=== PATIENT | male | born 1955 | race Caucasian/White ===

== ENCOUNTER → 2017-01-31 | Outpatient (CLI) | payer MEDICARE ==
[2017-01-31 13:16] VITALS: BMI 46.3
== END | disposition home or self-care (01) ==
LOC: BARWHC3 08:36
PROVIDERS: ATTEND Surgery Plastic and Reconstructive Surgery
DX: E66.01 Morbid (severe) obesity due to excess calories (principal)
CPT/HCPCS: 97804

== ENCOUNTER → 2017-02-02 | Outpatient (CLI) | payer MEDICARE, OTHER, SELFPAY ==
[2017-02-09 05:26] LABS: Anabasine Urine <2.0 ng/mL (<2.0)
== END | disposition home or self-care (01) ==
LOC: LABWHC1 16:18
PROVIDERS: ATTEND Surgery Plastic and Reconstructive Surgery
DX: Z72.0 Tobacco use (principal)
CPT/HCPCS: 80323

== ENCOUNTER → 2017-02-02 | Outpatient (CLI) | payer MEDICARE ==
[2017-02-02 15:06] VITALS: BP 157/70; PULSE 74; RESP 15; TEMP 97.6; BMI 46.8
--- NOTE | 2017-02-25 20:11 | P.PN ---
Progress Note - Text DATE OF SERVICE: 02/02/2017 CHIEF COMPLAINT: Bariatric assessment. HISTORY OF PRESENT ILLNESS: Dominick Briceno is a 61-year-old gentleman who presented to us in August 2016. Over the past 4 going on 5 months, he has been evaluating his bariatric options. Initially, he was looking into a Jerry-en-Y gastric bypass. Now he is possibly looking into a sleeve gastrectomy. He has completed a psych assessment. Separately, he comes in with concerns of moderate water retention of the lower extremities. As he is evaluating for a sleeve gastrectomy, he was asked to discontinue his omeprazole for least for one week to evaluate severity of reflux disease. He denies any troubles with reflux disease while coming off his medication. He has purchase his whey protein to start his protein shakes. He also reports possibility of moving from his home to [place]. Currently he lives in [place]. Now he comes in with further concerns. Separately, he reports discontinuing tobacco use over the past 4 weeks as well. PAST MEDICAL HISTORY: 1. Hypertension. 2. Hyperlipidemia. 3. Sleep apnea. 4. Morbid obesity. 5. Renal insufficency. 6. Bipolar disorder. 7. Gastroesophageal reflux disease. 8. Osteoarthritis. PAST SURGICAL HISTORY: 1. Cholecystectomy. 2. Traumatic amputation of the right thumb. 3. Upper endoscopy. MEDICATIONS: 1. Metformin. 2. Stool softener. 3. Zocor. 4. Senna. 5. MiraLax. 6. Omeprazole. 7. Levothyroxine. 8. Imdur. 9. Motrin. 10. Vitamin D. 11. Depakote. 12. Flexeril. 13. Coreg. 14. Aspirin. 15. Tylenol No. 3. ALLERGIES: 1. CEPHALOSPORIN. 2. GLUCOCORTICOIDS. 3. PENICILLIN. 4. SULFA. 5. BACTRIM. 6. YELLOW DYE. SOCIAL HISTORY: He is a daily tobacco user. FAMILY HISTORY: Pertinent for diabetes including hypertension and morbid obesity also noted in the sister. REVIEW OF SYSTEMS: CONSTITUTIONAL: Height of 5 foot 11, ideal body weight is 170 pounds. Highest weight of 343 pounds. Today he comes weighing 335 pounds. Attained weight loss of 8 pounds. Body mass index reduced from 47.9 down to 46.9. He is still 157 pounds overweight. He has lost 4 pounds since his last evaluation 4 months ago. PSYCH: History of bipolar disorder where he alternates his medications with his primary care provider. HEENT: Denies any active trouble with vision or swallowing. He does report troubles with hearing, however. ENDOCRINE: History of diabetes type 2. No reports of thyroid disorder noted. RESPIRATORY: Does have intermittent dyspnea on exertion including obstructive sleep apnea. CARDIOVASCULAR: History of hypertension for which he is on medications. He has also developed renal insufficiency as a result of his hypertension. GASTROINTESTINAL: Has gastroesophageal reflux disease. No reports of change in bowel habits. He has had prior colonoscopies. MUSCULOSKELETAL: Noted traumatic amputation of the right thumb. Has osteoarthritis of the lower back, including bilateral hips. HEMATOLOGIC: No reports of easy bruising or bleeding. PHYSICAL EXAM: VITAL SIGNS: 97.6, 74, 15, 157/70, 5 foot 11, 335 pounds. Body mass index of 46.9. GENERAL: Well-developed male in no acute distress. HEENT: No sclerae icterus. Extraocular movements grossly intact. Moist buccal mucosa. He is edentulous. He is hard of hearing, however. NECK: Supple without supple without lymphadenopathy. No thyromegaly. CHEST: Nonlabored respirations with equal bilateral excursions. CARDIOVASCULAR: Regular rate and regular rhythm. ABDOMEN: Abdomen is soft, nontender, nondistended. MUSCULOSKELETAL: No clubbing, cyanosis, or edema. NEURO: Cranial nerves II through XII grossly intact. No focal or lateralizing signs. PSYCH: Appropriate affect. Alert and oriented to person, place, and time. MISCELLANEOUS: Psych assessment was reviewed alongside with the patient including concerns of his bipolar medications, which is occasionally taken. Separately appropriate family supports and financial needs were described and discussed. The education of bariatric lifestyle was questioned in detail, including when to take his supplements and medications. He had passed all questions. STUDIES: Upper endoscopy also demonstrated findings consistent with a food bezoar and gastroparesis. Low grade 4 lower esophageal valve was also identified and confirmed. ASSESSMENT: 1. Morbid obesity due to excess calories. 2. Body mass index reduced from 47.9 down to 46.9. 3. Active nicotine use. 4. Obstructive sleep apnea. 5. Hypertensive heart disease with cardiomyopathy. 6. Hypertensive renal insufficiency. 7. Bipolar disorder. 8. Gastroesophageal reflux disease. 9. Prior history of myocardial infarction. 10. Prior history of gastric ulcer. 11. Family history of morbid obesity. 12. Dietary surveillance and counseling. 13. Tobacco cessation. 14. Diaphragmatic hiatal hernia. 15. Personal history of colon polyps. PLAN: 1. He has completed his psych assessment with some reservations regarding appropriate familial or social support as well as understanding the bariatric lifestyle. He was thoroughly counseled and including questions which he demonstrated 100% answers to expectations for a bariatric lifestyle and diet. 2. He also reports no symptoms without taking his omeprazole. As a result, he has elected for a sleeve gastrectomy over a gastric bypass. 3. He reports abstaining from tobacco; however, will complete a urine cotinine test. 4. An 8-page second-generation bariatric consent form was reviewed in detail, including the risks of increased reflux disease postop as well as leaks and his nutritional deficiencies. This is: however, not limited to additional full length discussion of all potential complications and risks. 5. As he travels from [place] away, I have asked him to have close communication with us as to arrange in the case of any emergencies. He states that he will be moving to [place]. ADDENDUM: LABS: Urine cotinine test was completely negative. Will proceed with scheduling surgery as advised.
== END | disposition home or self-care (01) ==
LOC: BARWHC3 14:19
PROVIDERS: ATTEND Surgery Plastic and Reconstructive Surgery
DX: Z01.818 Encounter for other preprocedural examination (principal); E66.01 Morbid (severe) obesity due to excess calories; I11.9 Hypertensive heart disease without heart failure; N28.9 Disorder of kidney and ureter, unspecified; I25.2 Old myocardial infarction; F31.9 Bipolar disorder, unspecified; K44.9 Diaphragmatic hernia without obstruction or gangrene; Z72.0 Tobacco use; Z88.8 Allergy status to other drugs, medicaments and biological substances; Z71.3 Dietary counseling and surveillance; Z88.2 Allergy status to sulfonamides; Z88.1 Allergy status to other antibiotic agents; Z88.0 Allergy status to penicillin; Z87.11 Personal history of peptic ulcer disease; Z68.42 Body mass index [BMI] 45.0-49.9, adult; Z79.82 Long term (current) use of aspirin; Z91.048 Other nonmedicinal substance allergy status; Z86.010 Personal history of colon polyps; Z79.899 Other long term (current) drug therapy; Z79.84 Long term (current) use of oral hypoglycemic drugs; Z79.02 Long term (current) use of antithrombotics/antiplatelets
CPT/HCPCS: 80323; 99211

== ENCOUNTER → 2017-03-02 | Outpatient (CLI) | payer MEDICARE ==
[2017-03-02 16:05] VITALS: BP 145/75; PULSE 66; RESP 16; TEMP 98.1; BMI 46.0
--- NOTE | 2017-04-27 04:21 | P.PN ---
Progress Note - Text DATE OF SERVICE: 03/02/2017 CHIEF COMPLAINT: Morbid obesity. HISTORY OF PRESENT ILLNESS: Dominick Briceno is a 61-year-old gentleman who has been undergoing bariatric evaluation for a little over three years. At his height of 5 feet 11 inches his ideal body weight is 178 pounds. His highest weight was 343 pounds. Today he comes in weighing 330 pounds. He has maintained a 13 pounds weight loss. He is still 152 pounds overweight. Body mass index is reduced from 47.9 down to 46. He self medicates with Depakote. He reports taking large doses of Depakote since he was 18 years old. He has changed his surgical options from a Jerry-en-Y gastric bypass now to a sleeve. He has maintained a strict protein diet and has been able to lose 16 pounds in less than 5 days. He now comes in seeking surgical intervention. PAST MEDICAL HISTORY: 1. Hypertension. 2. Hyperlipidemia. 3. Sleep apnea. 4. Morbid obesity. 5. Renal insufficency. 6. Bipolar disorder. 7. Gastroesophageal reflux disease. 8. Osteoarthritis. PAST SURGICAL HISTORY: 1. Cholecystectomy. 2. Traumatic amputation of the right thumb. 3. Upper endoscopy. MEDICATIONS: 1. Metformin. 2. Stool softener. 3. Zocor. 4. Senna. 5. MiraLax. 6. Omeprazole. 7. Levothyroxine. 8. Imdur. 9. Motrin. 10. Vitamin D. 11. Depakote. 12. Flexeril. 13. Coreg. 14. Aspirin. 15. Tylenol No. 3. ALLERGIES: 1. CEPHALOSPORIN. 2. GLUCOCORTICOIDS. 3. PENICILLIN. 4. SULFA. 5. BACTRIM. 6. YELLOW DYE. SOCIAL HISTORY: He is a daily tobacco user. FAMILY HISTORY: Pertinent for diabetes including hypertension and morbid obesity also noted in the sister. REVIEW OF SYSTEMS: CONSTITUTIONAL: At his height of 5 feet 11 inches his ideal body weight is 178 pounds. His highest weight was 343 pounds. Today he comes in weighing 330 pounds. He has maintained a 13 pounds weight loss. He is still 152 pounds overweight. Body mass index is reduced from 47.9 down to 46. NEURO: History of seizure disorders. Also, history of bipolar disorder. PSYCH: History of bipolar disorder where he alternates his medications with his primary care provider. HEENT: Denies any active trouble with vision or swallowing. He does report troubles with hearing, however. ENDOCRINE: History of diabetes type 2. No reports of thyroid disorder noted. RESPIRATORY: Does have intermittent dyspnea on exertion including obstructive sleep apnea. CARDIOVASCULAR: History of hypertension for which he is on medications. He has also developed renal insufficiency as a result of his hypertension. GASTROINTESTINAL: Has gastroesophageal reflux disease. No reports of change in bowel habits. He has had prior colonoscopies. MUSCULOSKELETAL: Noted traumatic amputation of the right thumb. Has osteoarthritis of the lower back, including bilateral hips. HEMATOLOGIC: No reports of easy bruising or bleeding. PHYSICAL EXAM: VITAL SIGNS: 98.1, 66, 16, 145/75, 5 feet 11 inches, 330 pounds. Body mass index 46.1. ABDOMEN: Soft, nontender, nondistended. GENERAL: Well-developed male in no acute distress. HEENT: No sclerae icterus. Extraocular movements grossly intact. Moist buccal mucosa. He is edentulous. He is hard of hearing, however. NECK: Supple without supple without lymphadenopathy. No thyromegaly. CHEST: Nonlabored respirations with equal bilateral excursions. CARDIOVASCULAR: Regular rate and regular rhythm. MUSCULOSKELETAL: No clubbing, cyanosis, or edema. NEURO: Cranial nerves II through XII grossly intact. No focal or lateralizing signs. PSYCH: Appropriate affect. Alert and oriented to person, place, and time. ASSESSMENT: 1. Morbid obesity due to excess calories. 2. Body mass index reduced from 47.9 down to 46. 3. Tobacco cessation. 4. Obstructive sleep apnea. 5. Hypertensive heart disease with cardiomyopathy. 6. Hypertensive renal insufficiency. 7. Bipolar disorder. 8. Gastroesophageal reflux disease. 9. Prior history of myocardial infarction. 10. Prior history of gastric ulcer. 11. Family history of morbid obesity. 12. Dietary surveillance and counseling. 13. Diaphragmatic hiatal hernia. PLAN: 1. An 8 page second generation bariatric consent form was reviewed in detail. All his questions including dietary restrictions were reviewed. 2. As his medication Depakene is primarily tablet form, I recommend liquid form. He will have close observation including monitoring of his seizure, antiseizure medications and antibipolar medications. 3. He will continue with 2 week protein diet in the interim. 4. Inpatient hospitalization anticipated over 2 nights. 5. Deep venous thrombosis prophylaxis. 6. Antibiotic prophylaxis. 7. Recommend management with his CPAP for obstructive sleep apnea. 8. He has selected for a sleeve gastrectomy and risks for severe gastroesophageal reflux disease was also described. 9. Intraoperative review for hiatal hernias and subsequent repair also described as well. ADDENDUM: Hemoglobin was normal at 13.8. MCV was elevated at 103.6. Platelet count was low at 145. Sodium was low at 135. Chloride was elevated and 93. Carbon dioxide was elevated at 33. BUN is elevated at 40, creatinine elevated 1.35. [facility]
== END ==
LOC: BARWHC3 14:51
PROVIDERS: ATTEND Surgery Plastic and Reconstructive Surgery
DX: Z01.818 Encounter for other preprocedural examination (principal); E66.01 Morbid (severe) obesity due to excess calories; E03.9 Hypothyroidism, unspecified; F31.9 Bipolar disorder, unspecified; Z79.899 Other long term (current) drug therapy; Z79.01 Long term (current) use of anticoagulants
CPT/HCPCS: 80053; 85025; 93005; 99211

== ENCOUNTER → 2017-03-02 | Outpatient (CLI) | payer MEDICARE ==
[2017-03-02 17:15] LABS: EKG EKG PERFORMED
[2017-03-02 18:00] LABS: Basophils % (A) 1 %; CH 33.6; CHCM 32.6; Eosinophils # (A) 0.5 k/uL (0-0.7); Eosinophils % (A) 9 %; HCT 41.8 % (39.0-53.0); HDW 2.57; HGB 13.8 gm/dL (13.0-17.5); Luc # (Auto) 0.14; Luc % (Auto) 3; Lymphocytes # (A) 1.2 k/uL (1.0-4.8); Lymphocytes % (A) 23 %; MCH 34.2 pg (25.0-35.0); MCV 103.6 fL (80.0-100.0); Macrocytosis Moderate; Monocytes # (A) 0.7 k/uL (0-1.0); Monocytes % (A) 12 %; Neutrophils # (A) 2.8 k/uL (1.3-7.7); Neutrophils % (A) 52 %; RBC 4.04 m/uL (4.30-5.90); RDW 15.3 % (11.5-15.5); WBC 5.4 k/uL (3.8-10.6); WBC (Perox) 5.64
[2017-03-02 18:19] LABS: ALT 31 U/L (21-72); AST 33 U/L (17-59); Alkaline Phosphatase 55 U/L (38-126); Anion Gap 9 mmol/L; Blood Urea Nitrogen 40 mg/dL (9-20); Calcium 10.2 mg/dL (8.4-10.2); Carbon Dioxide 33 mmol/L (22-30); Chloride 93 mmol/L (98-107); Glucose 87 mg/dL (74-99); Non-African American GFR(MDRD) 53 (>60 ml/min/1.73 sqM); Potassium 4.3 mmol/L (3.5-5.1); Sodium 135 mmol/L (137-145); Total Bilirubin 0.6 mg/dL (0.2-1.3); Total Protein 7.7 g/dL (6.3-8.2)
== END ==
LOC: LABPAT 16:45
PROVIDERS: ATTEND Surgery Plastic and Reconstructive Surgery
DX: Z01.810 Encounter for preprocedural cardiovascular examination (principal); Z01.812 Encounter for preprocedural laboratory examination
CPT/HCPCS: 80053; 85025; 93005

== ENCOUNTER 2017-03-14 07:23 | Inpatient (IN) | payer MEDICARE ==
[~2017-03-14 07:23] MED LIST: CLINDAMYCIN 900 MG in DEXTROSE 5% IN WATER 50 ML IVPB ONE; GENTAMICIN 500 MG in SODIUM CHLORIDE 0.9% 100 ML IVPB ONE; HYDROmorphone 1 MG/ML 1 ML SYRINGE IVP PRN; LACTATED RINGERS 1,000 ML IV SCH; LIDOCAINE 1% 20 ML VIAL (10MG/ML) FOR IV START INTRADERMA PRN; MIDAZOLAM 2 MG/2 ML VIAL IV PRN; ONDANSETRON 4 MG/2 ML VIAL IVP ONE; SCOPOLAMINE 1.5MG/72HR PATCH TRANSDERM ONE
--- NOTE | 2017-03-14 07:44 | P.GSHP ---
History of Present Illness H&P Date: 03/14/17 DATE OF SERVICE: 03/14/2017 CHIEF COMPLAINT: Morbid obesity. HISTORY OF PRESENT ILLNESS: Dominick Briceno is a 61-year-old gentleman who presented to us in August 2016. He is looking into a sleeve gastrectomy. He has completed a psych assessment. As he is evaluating for a sleeve gastrectomy, he was asked to discontinue his omeprazole for least for one week to evaluate severity of reflux disease. He denies any troubles with reflux disease while coming off his medication. He has several comorbidities related to his morbid obesity as well as sleep apnea, hypertension, osteoarthritis. Separately, he reports discontinuing tobacco use over the past 8 weeks as well. PAST MEDICAL HISTORY: 1. Hypertension. 2. Hyperlipidemia. 3. Sleep apnea. 4. Morbid obesity. 5. Renal insufficency. 6. Bipolar disorder. 7. Gastroesophageal reflux disease. 8. Osteoarthritis. PAST SURGICAL HISTORY: 1. Cholecystectomy. 2. Traumatic amputation of the right thumb. 3. Upper endoscopy. MEDICATIONS: 1. Metformin. 2. Stool softener. 3. Zocor. 4. Senna. 5. MiraLax. 6. Omeprazole. 7. Levothyroxine. 8. Imdur. 9. Motrin. 10. Vitamin D. 11. Depakote. 12. Flexeril. 13. Coreg. 14. Aspirin. 15. Tylenol No. 3. ALLERGIES: 1. CEPHALOSPORIN. 2. GLUCOCORTICOIDS. 3. PENICILLIN. 4. SULFA. 5. BACTRIM. 6. YELLOW DYE. SOCIAL HISTORY: He is a daily tobacco user. FAMILY HISTORY: Pertinent for diabetes including hypertension and morbid obesity also noted in the sister. REVIEW OF SYSTEMS: CONSTITUTIONAL: Height of 5 foot 11, ideal body weight is 170 pounds. Highest weight of 343 pounds. Today he comes weighing 318 pounds. Attained weight loss of 25 pounds. Body mass index reduced from 47.9 down to 44.5. PSYCH: History of bipolar disorder where he alternates his medications with his primary care provider. HEENT: Denies any active trouble with vision or swallowing. He does report troubles with hearing, however. ENDOCRINE: History of diabetes type 2. No reports of thyroid disorder noted. RESPIRATORY: Does have intermittent dyspnea on exertion including obstructive sleep apnea. CARDIOVASCULAR: History of hypertension for which he is on medications. He has also developed renal insufficiency as a result of his hypertension. GASTROINTESTINAL: Has gastroesophageal reflux disease. No reports of change in bowel habits. He has had prior colonoscopies. MUSCULOSKELETAL: Noted traumatic amputation of the right thumb. Has osteoarthritis of the lower back, including bilateral hips. HEMATOLOGIC: No reports of easy bruising or bleeding. PHYSICAL EXAM: VITAL SIGNS: 97.6, 74, 15, 157/70, 5 foot 11, 318 pounds. Body mass index of 44.5. GENERAL: Well-developed male in no acute distress. HEENT: No sclerae icterus. Extraocular movements grossly intact. Moist buccal mucosa. He is edentulous. He is hard of hearing, however. NECK: Supple without supple without lymphadenopathy. No thyromegaly. CHEST: Nonlabored respirations with equal bilateral excursions. CARDIOVASCULAR: Regular rate and regular rhythm. ABDOMEN: Abdomen is soft, nontender, nondistended. MUSCULOSKELETAL: No clubbing, cyanosis, or edema. NEURO: Cranial nerves II through XII grossly intact. No focal or lateralizing signs. PSYCH: Appropriate affect. Alert and oriented to person, place, and time. MISCELLANEOUS: Psych assessment was reviewed alongside with the patient including concerns of his bipolar medications, which is occasionally taken. Separately appropriate family supports and financial needs were described and discussed. The education of bariatric lifestyle was questioned in detail, including when to take his supplements and medications. He had passed all questions. STUDIES: Upper endoscopy also demonstrated findings consistent with a food bezoar and gastroparesis. Low grade 4 lower esophageal valve was also identified and confirmed. ASSESSMENT: 1. Morbid obesity due to excess calories. 2. Body mass index reduced from 47.9 down to 44.5. 3. Active nicotine use. 4. Obstructive sleep apnea. 5. Hypertensive heart disease with cardiomyopathy. 6. Hypertensive renal insufficiency. 7. Bipolar disorder. 8. Gastroesophageal reflux disease. 9. Prior history of myocardial infarction. 10. Prior history of gastric ulcer. 11. Family history of morbid obesity. 12. Dietary surveillance and counseling. 13. Tobacco cessation. 14. Diaphragmatic hiatal hernia. 15. Personal history of colon polyps. PLAN: 1. He has completed his psych assessment with some reservations regarding appropriate familial or social support as well as understanding the bariatric lifestyle. He was thoroughly counseled and including questions which he demonstrated 100% answers to expectations for a bariatric lifestyle and diet. 2. He also reports no symptoms without taking his omeprazole. As a result, he has elected for a sleeve gastrectomy over a gastric bypass. 3. He reports abstaining from tobacco; however, will complete a urine cotinine test. 4. An 8-page second-generation bariatric consent form was reviewed in detail, including the risks of increased reflux disease postop as well as leaks and his nutritional deficiencies. This is however, not limited to additional full length discussion of all potential complications and risks. 5. As he travels from [place] away, I have asked him to have close communication with us as to arrange in the case of any emergencies. He states that he will be moving to [place]. 6. Inpatient hospitalization overnight anticipated over 2 nights. 7. DVT prophylaxis. 8. Antibiotic prophylaxis. Past Medical History Past Medical History: Hyperlipidemia, Hypertension, Sleep Apnea/CPAP/BIPAP, Thyroid Disorder Additional Past Medical History / Comment(s): UNSURE OF SLEEP APNEA- PAST HX OF C-PAP USE, STATES HX OF BLOOD CLOT IN HIS BACK., NEUROPATHY FEET, HAND TREMORS. , STATES HAVING OCCASIONAL DIARRHEA. History of Any Multi-Drug Resistant Organisms: None Reported Past Surgical History: Cholecystectomy, Tonsillectomy Additional Past Surgical History / Comment(s): HEMORRHOIDS. Past Anesthesia/Blood Transfusion Reactions: No Reported Reaction Additional Past Anesthesia/Blood Transfusion Reaction / Comment(s): . Past Psychological History: Bipolar Smoking Status: Former smoker Past Alcohol Use History: None Reported Additional Past Alcohol Use History / Comment(s): Quit smoking 2 months ago. Smoked for approx. 48 years. started smoking age 13, smoked 1ppd. Past Drug Use History: None Reported - Past Family History Mother Family Medical History: No Reported History Father Family Medical History: No Reported History Medications and Allergies Home Medications Medication Instructions Recorded Confirmed Type Aspirin 81 mg PO DAILY 10/04/16 03/11/17 History Carvedilol [Coreg] 3.125 mg PO BID 10/04/16 03/11/17 History Divalproex Sodium [Depakote] 125 mg PO HS 10/04/16 03/11/17 History Divalproex [Depakote] 1,000 mg PO BID 10/04/16 03/11/17 History Ergocalciferol [Vitamin D2] 50,000 unit PO Q7D 10/04/16 03/11/17 History Isosorbide Mononitrate ER [Imdur] 30 mg PO QAM 10/04/16 03/11/17 History Simvastatin [Zocor] 40 mg PO HS 10/04/16 03/11/17 History Stool Softner 2 tab PO DAILY 10/04/16 03/11/17 History Bumetanide [Bumex] 2 mg PO DAILY 03/11/17 03/11/17 History Ibuprofen [Advil] 800 mg PO ONCE PRN 03/11/17 03/11/17 History Levothyroxine Sodium [Synthroid] 200 mcg PO DAILY 03/11/17 03/11/17 History Vitamin B-12 Unknown Dose 1 tab PO DAILY 03/11/17 03/11/17 History Allergies Allergy/AdvReac Type Severity Reaction Status Date / Time Cephalosporins Allergy Unknown Verified 03/11/17 11:11 Corticosteroids Allergy states Verified 03/11/17 11:12 (Glucocorticoids) steroids cause problems with his bipolar meds. Penicillins Allergy Rash/Hives Verified 03/11/17 11:11 Sulfa (Sulfonamide Allergy Unknown Verified 03/11/17 11:11 Antibiotics) sulfamethoxazole Allergy Unknown Verified 03/11/17 11:11 [From Bactrim] trimethoprim [From Bactrim] Allergy Unknown Verified 03/11/17 11:11 yellow dye Allergy Unknown Verified 03/11/17 11:11
[2017-03-14] MEDS ORDERED: ENOXAPARIN 40 MG/0.4 ML SYRINGE SQ STA (07:45)
[2017-03-14] MEDS ORDERED: ACETAMINOPHEN IV (For NPO) 1,000 MG in EMPTY BAG 1 BAG IVPB ONE ×2 (07:45→15:00)
[2017-03-14] MEDS ORDERED: PANTOPRAZOLE 40 MG/10 ML VIAL IV STA (07:45)
[2017-03-14] MEDS ORDERED: CHLORHEXIDINE GLUCONATE 15 ML CUP MUCOUS MEM ONE (07:45)
[2017-03-14 08:46] LABS: Glucose,Whole Blood 80 mg/dL (75-99)
[2017-03-14 09:10] LABS: ALT 291 U/L (21-72); AST 217 U/L (17-59); Alkaline Phosphatase 199 U/L (38-126); Anion Gap 12 mmol/L; Blood Urea Nitrogen 25 mg/dL (9-20); Calcium 9.7 mg/dL (8.4-10.2); Carbon Dioxide 28 mmol/L (22-30); Chloride 99 mmol/L (98-107); Glucose 87 mg/dL (74-99); Non-African American GFR(MDRD) 60 (>60 ml/min/1.73 sqM); Potassium 3.7 mmol/L (3.5-5.1); Sodium 139 mmol/L (137-145); Total Bilirubin 0.7 mg/dL (0.2-1.3); Total Protein 7.9 g/dL (6.3-8.2)
[2017-03-14] MEDS ORDERED: LIDOCAINE 1% INJ 10MG/ML (20 ML MDV) ONE (09:43)
[2017-03-14] MEDS ORDERED: ePHEDrine 50 MG/ML 1 ML AMP ONE (09:43)
[2017-03-14] MEDS ORDERED: NEOSTIGMINE 1 MG/ML 10 ML VIAL ONE (09:43)
[2017-03-14] MEDS ORDERED: GLYCOPYRROLATE 0.2 MG/ML 2 ML VIAL ONE (09:43)
[2017-03-14] MEDS ORDERED: SUCCINYLCHOLINE CHLORIDE 100 MG/5 ML SYR IV ONE (09:43)
[2017-03-14] MEDS ORDERED: PROPOFOL 10 MG/ML 20 ML VIAL IV ONE (09:43)
[2017-03-14] MEDS ORDERED: MIDAZOLAM 2 MG/2 ML VIAL ONE (09:43)
[2017-03-14] MEDS ORDERED: PHENYLEPHRINE-0.9% NACL SYG 1 MG/10 ML SYRINGE ONE (09:43)
[2017-03-14] MEDS ORDERED: fentaNYL (PF) 50 MCG/ML 2 ML AMP ONE (09:43)
[2017-03-14] MEDS ORDERED: HYDROmorphone (PF) 1 MG/ML ONE (09:43)
[2017-03-14] MEDS ORDERED: BUPIVACAIN-EPI 0.25%-1:200,000 30 ML VIAL SQ ONE (10:12)
[2017-03-14] MEDS ORDERED: LACTATED RINGERS 1,000 ML IV ONE ×2 (12:01→12:46)
[2017-03-14] MEDS ORDERED: NALOXONE 0.4 MG/ML 1 ML VIAL IV PRN (13:11)
[2017-03-14] MEDS ORDERED: HYDROmorphone 1 MG/ML 1 ML SYRINGE IVP PRN (13:11)
--- NOTE | 2017-03-14 13:11 | P.OP ---
Date of Procedure: 03/14/17 Description of Procedure: SURGEON: BELEN JURADO MD PREOPERATIVE DIAGNOSIS: 1. Morbid obesity due to excess calories. 2. Body mass index reduced from 47.9 down to 44.5. 3. Former tobacco use. 4. Obstructive sleep apnea. 5. Hypertensive heart disease with cardiomyopathy. 6. Hypertensive renal insufficiency. 7. Bipolar disorder. 8. Gastroesophageal reflux disease. 9. Prior history of myocardial infarction. 10. Prior history of gastric ulcer. 11. Family history of morbid obesity. 12. Dietary surveillance and counseling. 13. Diaphragmatic hiatal hernia. 14. Personal history of colon polyps. POSTOPERATIVE DIAGNOSIS: 1. Morbid obesity due to excess calories. 2. Body mass index reduced from 47.9 down to 44.5. 3. Former tobacco use. 4. Obstructive sleep apnea. 5. Hypertensive heart disease with cardiomyopathy. 6. Hypertensive renal insufficiency. 7. Bipolar disorder. 8. Gastroesophageal reflux disease. 9. Prior history of myocardial infarction. 10. Prior history of gastric ulcer. 11. Family history of morbid obesity. 12. Dietary surveillance and counseling. 13. Diaphragmatic hiatal hernia. 14. Personal history of colon polyps. 15. Mediastinal mass. 16. Incarcerated epigastric ventral hernia. 17. Perigastric lymphadenopathy. 18. Upper abdominal peritoneal adhesions, left upper quadrant. 19. Hepatomegaly. PROCEDURES PERFORMED: 1. Laparoscopic vertical sleeve gastrectomy with 34 Somali bougie. 2. Laparoscopic reduction and repair of incarcerated midline paraesophageal hiatal hernia repair, 6cm, with mesh 8 x 8 cm Caldwell Biopatch A. 3. Laparoscopic excision of mediastinal mass approximately 5 cm. 4. Intraoperative esophagogastroduodenoscopy. 5. Laparoscopic lysis of adhesions. ANESTHESIA: General with 60 mL 0.25% Marcaine with epinephrine. ESTIMATED BLOOD LOSS: 10 mL. SPECIMENS: 1. Mediastinal mass 2. Perigastric lymph node 3. Sleeve gastrectomy COMPLICATIONS: None. INDICATIONS: Dominick Briceno is a 61-year-old gentleman who presented to us in August 2016. He has several comorbidities related to his morbid obesity as well as sleep apnea, hypertension, osteoarthritis. Separately, he reports discontinuing tobacco use over the past 8 weeks as well. Height of 5 foot 11, ideal body weight is 170 pounds. Highest weight of 343 pounds. Today he comes weighing 318 pounds. Attained weight loss of 25 pounds. Body mass index reduced from 47.9 down to 44.5. All surgical options for morbid obesity had been described; however, he elected for a laparoscopic sleeve gastrectomy with possible paraesophageal hiatal hernia repair. A second-generation bariatric consent form was described in detail including the possibility of worsened reflux disease postoperatively, leaks for which he demonstrated understanding. Benefits of the procedure were described at length. Informed consent was obtained. DESCRIPTION: Preoperatively, he had received Peridex 15 mL oral solution as well as Lovenox 40 mg subcutaneously. He was brought into the operating room and laid on a split leg table. After general induction, a Grady catheter was placed. The abdomen was prepped and draped in a standard sterile fashion using ChloraPrep including Ioban draping. Prior to incision, a time-out protocol was confirmed with surgical team including the patient's name, procedure to be performed, as well as preoperative medications for which he received antibiotics prior to incision. His xiphoid to umbilicus is measured at 22 cm for his 5 foot, 11 inch frame. A 5 mm incision was made at approximately 15 cm from the xiphoid at the left upper quadrant. A 0 degree, 5 mm laparoscopic trocar entry was performed and entered into the peritoneal cavity. The abdomen was insufflated to 15 mmHg of pressure, which he tolerated well. Diagnostic laparoscopy confirmed no injury to bowel, viscera, or mesentery upon entry. The liver surface was round despite his 2 week high-protein diet. Incarcerated epigastric ventral hernia was found just above the umbilicus. Moderate adhesions of the left upper quadrant was also identified of the greater omentum to the abdominal wall. A large hiatus defect was also identified. Next, a 5 mm port was placed along the left anterior axillary line at the level of the left costal margin. A 15 mm port was placed along the right of the midline at the epigastrium. All ports were placed under direct localization. The patient was placed in reverse Trendelenburg position once a small Miguel Angel liver retractor was used to elevate the left lobe of the liver and held in place using an iron hospitality internship. Attention was brought to the left upper quadrant where adhesions were divided using Sonicision of the omentum to the abdominal wall. A dimple was encountered along the anterior hiatus consistent with his hiatal hernia. Initial attention was brought to creation of her sleeve gastrectomy, particularly mobilization of the greater curvature of the stomach. Using a ruler, the pylorus was identified then, 6 cm proximally along the greater curvature of the stomach, the area was marked. The short gastrics were mobilized upwards to the angle of His. Hemostasis was excellent during this portion of the procedure. Next, the upper pole of the stomach was moderately adherent to the left romaine and closely to the spleen, which was gently dissected free using a fenestrated grasper and Sonicision. Attention was now brought to mobilization of the phrenoesophageal ligament. Starting from the left romaine, the phrenoesophageal ligament anteriorly was dissected free. However, a large lead point consistent with a lipoma was delivered from the thoracic cavity of the mediastinum into the abdominal cavity and subsequently excised in several parts using a cordless Harmonic scalpel. Care was taken to avoid any injury to the bilateral vagi nerves during this portion of dissection. The distal esophagus was mobilized from an anterior to posterior approach such that approximately 2 cm intra-abdominal length of the esophagus was obtained. Once the left and right romaine was identified, and the distal esophagus was free from its attachments, the final length of the hiatal hernia was consistent with 6 cm. Again, an incarcerated lead point was excised consistent with a fixed, incarcerated, diaphragmatic hiatal hernia with lipoma. A large perigastric lymph node was also excised from the lesser curvature of the stomach. The hiatus was initially repaired primarily using a single stitch of Surgidac followed by a [id number] suture using 2-0 Surgidac on a Covidien endo stitch. The final closure was consistent with approximately a 56 Somali bougie as a fenestrated grasper easily passed between the abdominal cavity into the thoracic cavity. Next, to reinforce the repair, a [place] Biopatch A, 8 x 8 cm mesh was cut to size in a santana-hole fashion. Please note the left midclavicular trocar was exchanged for a 11 mm trocar to perform intracorporeal suturing. The [place]dwell Biopatch A was placed along the retroesophageal plane. The mesh had laid well in opposition to the left and right romaine. I then went to the head of the bed to perform an intraoperative esophagogastroduodenoscopy to evaluate the distal esophagus as well as the stomach, and final placement of the pediatric colonoscope for a 34 Somali bougie. The Olympus colonoscope was passed along the posterior oropharynx. The endotracheal tube was desufflated by 2 mL to allow for easy placement of the pediatric colonoscope. No injury was found along the distal esophagus. The stomach was entered and no acute gastroesophageal ulcerations were encountered. Next, the scope was positioned to the level of the antrum, which was unremarkable. The pylorus at the bulb was unremarkable in appearance too. The scope was laid along the distal aspect of the antrum and desufflated to allow for the rest of the preparation of the sleeve gastrectomy. I then went rescrubbed to the case whereby a Zeuss Tri Stapler 60 mm tissue reinforce black load was fired initially along the antrum at the marking point, 6 cm proximal to the pylorus. In a similar direction, a total of 4 - 60 mm black reinforced staplers were fired towards the angle of Hiss. Final stapler of a 60 mm reinforced purple load was used to completely divide the sleeve gastrectomy from its specimen. The staple line was completely hemostatic and linear. Hemostasis was excellent. I then went to the head of the bed to perform the intraoperative esophagogastroduodenoscopy leak test. The patient had been leveled. The upper pole of the stomach was bathed using normal saline solution. The scope was withdrawn with careful inspection along the staple line for which no leaks were found towards the entire length. Additionally, the sleeve was completely hemostatic without any encroachment along the angularis incisura. The GE junction was found to lay within and beyond into the abdominal cavity below the hiatus. No stricture was encountered. The GI tract was desufflated. The patient tolerated this portion of the procedure well. The scope was completely withdrawn. I then rescrubbed into case, whereby the irrigation fluid was aspirated from the abdominal cavity. Along the entire staple length Tisseal fibrin sealant was placed along the entire staple length. Once dried the Miguel Angel liver retractor was removed. Attention was now brought to removal of the specimen. Please note that a 15 mm trocar port was placed along the epigastrium to allow for firing of the stapler including removal of the sleeve gastrectomy specimen. Individually, the perigastric lymph node and mediastinal mass were removed using Endo Catch bags. The distal end of the sleeve gastrectomy specimen was brought out through the 15 mm port. Using a Flora clamp, the fascia was widened. The specimen was gently removed en total, corresponding 22 x 5 cm. No defects were confirmed along the staple line of the sleeve gastrectomy specimen. Minimal spillage had occurred upon removal of the stomach. The fascial defect was oversewn using 0 Vicryl using a Isaías Chappell device. All instruments and pneumoperitoneum including irrigation fluid was removed from the abdominal cavity. The 15 mm port site was irrigated with 1 liter of warm normal saline solution. 3-0 Vicryl was used to reapproximate the 15 mm port site including the 11 mm port site. The final incisions were closed using subcuticular running suture of 4-0 Monocryl. 60 mL of 0.25% Marcaine with epinephrine was infiltrated to all wounds for postop analgesia. Dermabond was applied to the skin once the skin had been cleansed. As his urine output was marginal, the Grady catheter had remained. At the end of the procedure, needle, sponge, and instrument count was verified correct by the anaesthetic technician. The patient was taken to the postanesthesia care unit in stable condition. FINDINGS: 1. Round liver edge with findings of hepatomegaly. 2. 6 cm paraesophageal hiatal hernia, fixed, with lead point and lipoma of the mediastinum and perigastric lymph node. 3. Excision of mediastinal lipoma removed along with sac. 4. Total of 5 tissue reinforced staplers used to create sleeve gastrectomy including 4- 60 mm black loads and 1 - 60 mm purple load. 5. Negative esophagogastroduodenoscopy leak test. 6. Incarcerated epigastric ventral hernia undisturbed during procedure. 7. Moderate adhesions along left upper quadrant.
[2017-03-14 13:26] LABS: Glucose,Whole Blood 137 mg/dL (75-99)
[2017-03-14 14:49] LABS: Magnesium 1.5 mg/dL (1.6-2.3)
[2017-03-14] MEDS: ALBUTEROL NEBULIZED 2.5 MG/3 ML INHALATION SCH ×2 (15:28→19:26)
[2017-03-14] MEDS ORDERED: ONDANSETRON 4 MG/2 ML VIAL IVP PRN (17:04)
[2017-03-14] MEDS: MAGNESIUM SULFATE-D5W PMX 1 GM in DEXTROSE/WATER 1 100ML.BAG IVPB SCH ×2 (17:38→23:20)
[2017-03-14] MEDS: 0.9% NACL WITH KCL 20 MEQ/L 1,000 ML IV SCH ×2 (17:41→23:21)
[2017-03-14 17:55] VITALS: BMI 44.1
[2017-03-14] MEDS: SIMETHICONE 40 MG/0.6 ML DROPS 2,000 MG/30 ML BOTTLE PO SCH (18:41)
[2017-03-14] MEDS: CLINDAMYCIN 900 MG in DEXTROSE 5% IN WATER 50 ML IVPB SCH ×2 (20:06)
[2017-03-14] MEDS: HYDROcodone/APAP 15 ML SOLUTION PO PRN (20:09)
[2017-03-14] MEDS: CARVEDILOL 3.125 MG TAB PO SCH (21:00)
[2017-03-14] MEDS: VALPROIC ACID ORAL SOLN 250 MG/5 ML CUP PO SCH (22:41)
[2017-03-14] MEDS: HYOSCYAMINE ORAL DROPS 1.875 MG/15 ML BOTTLE PO SCH (22:41)
[2017-03-15] MEDS: GENTAMICIN 140 MG in SODIUM CHLORIDE 0.9% 100 ML IVPB SCH ×2 (00:32→11:29)
[2017-03-15] MEDS: HYOSCYAMINE ORAL DROPS 1.875 MG/15 ML BOTTLE PO SCH ×6 (00:36→22:42)
[2017-03-15] MEDS: MAGNESIUM SULFATE-D5W PMX 1 GM in DEXTROSE/WATER 1 100ML.BAG IVPB SCH (01:56)
[2017-03-15] MEDS: SIMETHICONE 40 MG/0.6 ML DROPS 2,000 MG/30 ML BOTTLE PO SCH ×5 (01:56→22:41)
[2017-03-15] MEDS: CLINDAMYCIN 900 MG in DEXTROSE 5% IN WATER 50 ML IVPB SCH ×2 (05:58)
[2017-03-15] MEDS: ALBUTEROL NEBULIZED 2.5 MG/3 ML INHALATION SCH ×4 (09:06→21:05)
[2017-03-15 09:10] LABS: Anion Gap 8 mmol/L; Blood Urea Nitrogen 20 mg/dL (9-20); Calcium 8.9 mg/dL (8.4-10.2); Carbon Dioxide 23 mmol/L (22-30); Chloride 105 mmol/L (98-107); Non-African American GFR(MDRD) >60 (>60 ml/min/1.73 sqM); Potassium 4.2 mmol/L (3.5-5.1); Sodium 136 mmol/L (137-145)
[2017-03-15] MEDS: diphenhydrAMINE 50 MG/ML 1 ML VIAL IVP PRN (09:17)
[2017-03-15] MEDS ORDERED: SODIUM CHLORIDE 0.9% 1,000 ML BAG ONE (09:21)
[2017-03-15] MEDS: 1: MVI, ADULT NO.4 WITH VIT K 10 ML, THIAMINE 100 MG, FOLIC ACID 1 MG, POTASSIUM CHLORID IV SCH ×12 (09:21→17:08)
[2017-03-15] MEDS: 0.9% NACL WITH KCL 20 MEQ/L 1,000 ML IV SCH (09:22)
--- NOTE | 2017-03-15 09:50 | FL ---
EXAMINATION TYPE: FL UGI DATE OF EXAM: 03/15/2017 9:46 AM CLINICAL HISTORY: Status post gastric sleeve Contrast: Omnipaque 350 50 mL The patient ingested contrast without difficulty or delay. Noted are postsurgical changes of gastric sleeve. There is no evidence for leak or obstruction. Contrast is noted within the duodenum. IMPRESSION: Post-surgical change of gastric sleeve without evidence for obstruction or leak at this point in time.
[2017-03-15] MEDS: ISOSORBIDE MONONITRATE ER 30 MG TAB.ER.24H PO SCH (10:21)
[2017-03-15] MEDS: CARVEDILOL 3.125 MG TAB PO SCH ×2 (10:21→17:08)
[2017-03-15] MEDS: ASPIRIN 81 MG CHEW PO SCH (10:21)
[2017-03-15] MEDS: BUMETANIDE 1 MG TAB PO SCH (10:21)
[2017-03-15] MEDS: ENOXAPARIN 40 MG/0.4 ML SYRINGE SQ SCH (10:21)
[2017-03-15] MEDS: VALPROIC ACID ORAL SOLN 250 MG/5 ML CUP PO SCH ×2 (10:43→22:41)
[2017-03-15 11:26] LABS: Basophils % (A) 1 %; CH 33.4; CHCM 32.3; Eosinophils # (A) 0.1 k/uL (0-0.7); Eosinophils % (A) 2 %; HCT 44.7 % (39.0-53.0); HDW 2.92; HGB 14.4 gm/dL (13.0-17.5); Luc # (Auto) 0.09; Luc % (Auto) 2; Lymphocytes # (A) 1.2 k/uL (1.0-4.8); Lymphocytes % (A) 26 %; MCH 33.5 pg (25.0-35.0); MCHC 32.3 g/dL (31.0-37.0); MCV 103.6 fL (80.0-100.0); Macrocytosis Slight; Mean Platelet Volume 7.8; Monocytes # (A) 0.4 k/uL (0-1.0); Monocytes % (A) 9 %; Neutrophils # (A) 2.8 k/uL (1.3-7.7); Neutrophils % (A) 60 %; RBC 4.31 m/uL (4.30-5.90); WBC 4.7 k/uL (3.8-10.6); WBC (Perox) 4.21
[2017-03-15] MEDS: LEVOTHYROXINE 100 MCG TAB PO SCH (11:29)
[2017-03-15 14:24] LABS: Manual Review Performed
--- NOTE | 2017-03-15 20:12 | P.PN ---
Subjective Principal diagnosis: Morbid obesity Patient is status post sleeve gastrectomy. He has history of taking Depakote. He has been switched over to Depakene Syrup and reports tolerating this medication. He lives at home alone. He has multiple concerns regarding postoperative care. He has baseline tremors. Medications review was performed. He reports nausea that has also improved. His pain is fair. Separately he confirms trouble with his urination. Objective - Vital Signs Vital signs: Vital Signs Temp 98.6 F 03/15/17 15:06 Pulse 84 03/15/17 15:06 Resp 16 03/15/17 15:01 BP 145/87 03/15/17 15:06 Pulse Ox 97 03/15/17 15:06 Intake & Output 03/15/17 03/15/17 03/16/17 06:59 18:59 06:59 Intake Total 1600 800 Output Total 600 810 Balance 1000 -10 Weight 143.6 kg Intake: Intake, IV Titration 1600 800 Amount 0.9% NaCl with KCl 20 Meq 400 /l 1,000 ml @ 100 mls/hr IV .BY DURATION JUDSON Rx#: [id number] 0.9% NaCl with KCl 20 Meq 1200 300 /l 1,000 ml @ 150 mls/hr IV .[id number] JUDSON Rx#: [id number] Clindamycin 900 mg In 100 Dextrose 5% in Water 50 ml @ 100 mls/hr IVPB Q8H JUDSON Rx#:[id number] Gentamicin 140 mg In 100 100 Sodium Chloride 0.9% 100 ml @ 99.92 mls/hr IVPB Q8H JUDSON Rx#:[id number] Magnesium Sulfate-D5w Pmx 200 1 gm In Dextrose/Water 1 100ml.bag @ 100 mls/hr IVPB Q1H JUDSON Rx#: [id number] Output: Urine 600 810 Uretheral (Grady) 500 Other: Voiding Method Indwelling Catheter Urinal # Voids 1 - Exam GENERAL: Well developed and in no acute distress. Pleasant. HEENT: No sclera icterus. Extraocular movements grossly intact. Moist buccal mucosa. Head is atraumatic, normocephalic. Hears conversational speech. No nasal drainage. NECK: Supple without lymphadenopathy. No JV distention. CHEST: Non-labored respirations and equal bilateral excursions. CARDIOVASCULAR: Regular rate and rhythm. Palpable 2+ radial pulses. ABDOMEN: Soft, mild distention. Mild tenderness. No peritoneal signs. MUSCULOSKELETAL: No clubbing, cyanosis or edema. NEUROLOGIC: No focal or lateralizing signs. Has baseline tremors. PSYCH: Appropriate affect. Alert and oriented to person, place and time. - Labs CBC & Chem 7: 03/15/17 09:13 03/15/17 08:00 Labs: Abnormal Lab Results - Last 24 Hours (Table) 03/15/17 03/15/17 Range/Units 08:00 09:13 MCV 103.6 H (80.0-100.0) fL Plt Count 145 L (150-450) k/uL Sodium 136 L (137-145) mmol/L Assessment and Plan (1) Bipolar affective disorder Status: Acute (2) Morbid (severe) obesity due to excess calories Status: Acute (3) Morbid obesity with BMI of 40.0-44.9, adult Status: Acute (4) S/P laparoscopic sleeve gastrectomy Status: Acute (5) Hiatal hernia with GERD Status: Acute (6) Congestive heart failure due to hypertension Status: Acute (7) Sleep apnea, obstructive Status: Acute Plan: 1. His medications were reviewed including discontinuing vitamins at this time. Additionally, Zocor, aspirin, will be held as well as ibuprofen. 2. Will switch Depakote tablets to liquid for discharge. 3. He has bladder urgency consistent with prosthetic disorder. Flomax for 7 days described. 4. He is high risk for readmission including falls with his multiple medical comorbidities. Recommend home healthcare including possible evaluation for subacute rehab. 5. Discharge pending evaluation for subacute rehab versus home healthcare for safety of transition of care.
--- NOTE | 2017-03-15 20:22 | P.DS ---
Providers Date of admission: 03/14/17 07:23 Expected date of discharge: 03/16/17 Attending physician: Cassie Velazco Primary care physician: Stated None - Discharge Diagnosis(es) (1) Bipolar affective disorder Current Visit: Yes Status: Acute (2) Morbid (severe) obesity due to excess calories Current Visit: Yes Status: Acute (3) Morbid obesity with BMI of 40.0-44.9, adult Current Visit: Yes Status: Acute (4) S/P laparoscopic sleeve gastrectomy Current Visit: Yes Status: Acute (5) Hiatal hernia with GERD Current Visit: Yes Status: Acute (6) Congestive heart failure due to hypertension Current Visit: Yes Status: Acute (7) Sleep apnea, obstructive Current Visit: Yes Status: Acute Hospital Course: POSTOPERATIVE DIAGNOSIS: 1. Morbid obesity due to excess calories. 2. Body mass index reduced from 47.9 down to 44.5. 3. Former tobacco use. 4. Obstructive sleep apnea. 5. Hypertensive heart disease with cardiomyopathy. 6. Hypertensive renal insufficiency. 7. Bipolar disorder. 8. Gastroesophageal reflux disease. 9. Prior history of myocardial infarction. 10. Prior history of gastric ulcer. 11. Family history of morbid obesity. 12. Dietary surveillance and counseling. 13. Diaphragmatic hiatal hernia. 14. Personal history of colon polyps. 15. Mediastinal mass. 16. Incarcerated epigastric ventral hernia. 17. Perigastric lymphadenopathy. 18. Upper abdominal peritoneal adhesions, left upper quadrant. 19. Hepatomegaly. INDICATIONS: Dominick Briceno is a 61-year-old gentleman who presented to us in August 2016. He has several comorbidities related to his morbid obesity as well as sleep apnea, hypertension, osteoarthritis. Separately, he reports discontinuing tobacco use over the past 8 weeks as well. Height of 5 foot 11, ideal body weight is 170 pounds. Highest weight of 343 pounds. Today he comes weighing 318 pounds. Attained weight loss of 25 pounds. Body mass index reduced from 47.9 down to 44.5. All surgical options for morbid obesity had been described; however, he elected for a laparoscopic sleeve gastrectomy with possible paraesophageal hiatal hernia repair. A second-generation bariatric consent form was described in detail including the possibility of worsened reflux disease postoperatively, leaks for which he demonstrated understanding. Postoperatively, his medications for Depakene was adjusted from large capsule to liquid which he tolerated. Elevation of home health care services was obtained. He had mild prostatic disorder which is treated with Flomax. Prior to discharge, discharge instructions including diet were reviewed. Medical reconciliation was also reviewed in detail. Pertinent Studies: Upper GI demonstrated no leaks or obstruction. Procedures: PROCEDURES PERFORMED: 1. Laparoscopic vertical sleeve gastrectomy with 34 Libyan bougie. 2. Laparoscopic reduction and repair of incarcerated midline paraesophageal hiatal hernia repair, 6cm, with mesh 8 x 8 cm [place] Biopatch A. 3. Laparoscopic excision of mediastinal mass approximately 5 cm. 4. Intraoperative esophagogastroduodenoscopy. 5. Laparoscopic lysis of adhesions. Patient Condition at Discharge: Fair Plan - Discharge Summary New Discharge Prescriptions: HYDROcodone/APAP [Arthur Elixir 7.5-325Mg/15Ml] 15 ml PO Q6HR PRN #480 ml PRN Reason: Pain Omeprazole 40 mg PO DAILY #90 capsule. Tamsulosin [Flomax] 0.4 mg PO DAILY #7 cap Valproic Acid Oral Soln [Depakene Syrup] 1,000 mg PO BID #1800 ml Discharge Medication List Carvedilol [Coreg] 3.125 mg PO BID 10/04/16 [History] Divalproex Sodium [Depakote] 125 mg PO HS 10/04/16 [History] Divalproex [Depakote] 1,000 mg PO BID 10/04/16 [History] Isosorbide Mononitrate ER [Imdur] 30 mg PO QAM 10/04/16 [History] Bumetanide [Bumex] 2 mg PO DAILY 03/11/17 [History] Levothyroxine Sodium [Synthroid] 200 mcg PO DAILY 03/11/17 [History] HYDROcodone/APAP [Arthur Elixir 7.5-325Mg/15Ml] 15 ml PO Q6HR PRN #480 ml [Rx] Omeprazole 40 mg PO DAILY #90 capsule. 03/15/17 [Rx] Tamsulosin [Flomax] 0.4 mg PO DAILY #7 cap 03/15/17 [Rx] Valproic Acid Oral Soln [Depakene Syrup] 1,000 mg PO BID #1800 ml 03/15/17 [Rx] Follow up Appointment(s)/Referral(s): Cassie Velazco MD [STAFF PHYSICIAN] - 03/18/17 9:30 am Patient Instructions/Handouts: Valproic Acid (By mouth), Nutrition after Bariatric Surgery (GEN), Laparoscopic Sleeve Gastrectomy (DC) Activity/Diet/Wound Care/Special Instructions: [facility] Care [phone] should contact to schedule first visit within 24-48 hours. No lifting over 4 pounds in 4 weeks. Discharge Disposition: TRANSFER TO SNF/ECF
[2017-03-15] MEDS ORDERED: TAMSULOSIN 0.4 MG CAP.ER.24H PO STA (20:26)
[2017-03-16] MEDS: HYDROcodone/APAP 15 ML SOLUTION PO PRN (00:09)
[2017-03-16] MEDS: HYOSCYAMINE ORAL DROPS 1.875 MG/15 ML BOTTLE PO SCH ×2 (05:35→13:59)
[2017-03-16] MEDS: 1: MVI, ADULT NO.4 WITH VIT K 10 ML, THIAMINE 100 MG, FOLIC ACID 1 MG, POTASSIUM CHLORID IV SCH ×18 (05:35→14:00)
[2017-03-16] MEDS: SIMETHICONE 40 MG/0.6 ML DROPS 2,000 MG/30 ML BOTTLE PO SCH ×2 (05:35→13:59)
[2017-03-16] MEDS: LEVOTHYROXINE 100 MCG TAB PO SCH (05:35)
[2017-03-16] MEDS ORDERED: SODIUM CHLORIDE 0.9% 1,000 ML BAG ONE ×2 (05:35)
[2017-03-16] MEDS: diphenhydrAMINE 50 MG/ML 1 ML VIAL IVP PRN (06:11)
[2017-03-16 07:41] LABS: Glucose,Whole Blood 88 mg/dL (75-99)
[2017-03-16] MEDS ORDERED: TAMSULOSIN 0.4 MG CAP.ER.24H PO SCH (08:30)
[2017-03-16] MEDS: ALBUTEROL NEBULIZED 2.5 MG/3 ML INHALATION SCH ×2 (08:33→12:10)
[2017-03-16 08:39] VITALS: RESP 18; TEMP 98
[2017-03-16 08:46] VITALS: PULSE 76
[2017-03-16 08:58] VITALS: BP 100/63
[2017-03-16] MEDS: BUMETANIDE 1 MG TAB PO SCH (09:00)
[2017-03-16] MEDS: ASPIRIN 81 MG CHEW PO SCH (09:00)
[2017-03-16] MEDS: CARVEDILOL 3.125 MG TAB PO SCH (09:00)
[2017-03-16] MEDS: ENOXAPARIN 40 MG/0.4 ML SYRINGE SQ SCH (09:01)
[2017-03-16] MEDS: ISOSORBIDE MONONITRATE ER 30 MG TAB.ER.24H PO SCH (09:01)
[2017-03-16] MEDS: VALPROIC ACID ORAL SOLN 250 MG/5 ML CUP PO SCH (09:02)
--- NOTE | 2017-03-16 10:32 | P.GSCN ---
History of Present Illness Consult date: 03/16/17 Reason for Consult: Postsurgical urine retention History of present illness: The patient is a 61-year-old gentleman who was admitted the hospital 48 hours ago for a gastric sleeve weight loss surgery. This was done uneventfully. He has had problems urinating postoperatively. His residuals have been high between 3 and 400 mL. He had some incontinence the last attempt to void. The patient is interviewed the. He has no previous urologic problems. His frequency is not excessive. He has nocturia 2. His urine flow is good. He has not had previous urine infection hematuria or incontinence. There is no family history of urologic issues. He has not been on any urologic medication. Review of Systems - Gastrointestinal Reports abdominal pain - Genitourinary Reports as per HPI Past Medical History Past Medical History: Hyperlipidemia, Hypertension, Sleep Apnea/CPAP/BIPAP, Thyroid Disorder Additional Past Medical History / Comment(s): UNSURE OF SLEEP APNEA- PAST HX OF C-PAP USE, STATES HX OF BLOOD CLOT IN HIS BACK., NEUROPATHY FEET, HAND TREMORS. , STATES HAVING OCCASIONAL DIARRHEA. History of Any Multi-Drug Resistant Organisms: None Reported Past Surgical History: Cholecystectomy, Tonsillectomy Additional Past Surgical History / Comment(s): HEMORRHOIDS. Past Anesthesia/Blood Transfusion Reactions: No Reported Reaction Additional Past Anesthesia/Blood Transfusion Reaction / Comm: . Past Psychological History: Bipolar Smoking Status: Former smoker Past Alcohol Use History: None Reported Additional Past Alcohol Use History / Comment(s): Quit smoking 2 months ago. Smoked for approx. 48 years. started smoking age 13, smoked 1ppd. Past Drug Use History: None Reported - Past Family History Mother Family Medical History: No Reported History Father Family Medical History: No Reported History Medications and Allergies Home Medications Medication Instructions Recorded Confirmed Type Carvedilol [Coreg] 3.125 mg PO BID 10/04/16 03/14/17 History Divalproex Sodium [Depakote] 125 mg PO HS 10/04/16 03/14/17 History Divalproex [Depakote] 1,000 mg PO BID 10/04/16 03/14/17 History Isosorbide Mononitrate ER [Imdur] 30 mg PO QAM 10/04/16 03/14/17 History Bumetanide [Bumex] 2 mg PO DAILY 03/11/17 03/14/17 History Levothyroxine Sodium [Synthroid] 200 mcg PO DAILY 03/11/17 03/14/17 History Allergies Allergy/AdvReac Type Severity Reaction Status Date / Time Penicillins Allergy Severe Rash/Hives Verified 03/14/17 17:04 yellow dye Allergy Severe Itching Verified 03/14/17 17:04 Cephalosporins Allergy Itching Verified 03/14/17 17:04 Corticosteroids Allergy states Verified 03/14/17 08:13 (Glucocorticoids) steroids cause problems with his bipolar meds. sulfamethoxazole Allergy Itching Verified 03/14/17 17:04 [From Bactrim] trimethoprim [From Bactrim] Allergy Itching Verified 03/14/17 17:04 Surgical - Exam Vital Signs Temp Pulse Resp BP Pulse Ox 97.9 F 55 L 16 98/61 95 03/14/17 08:03 03/14/17 08:03 03/14/17 08:03 03/14/17 08:03 03/14/17 08:03 - General well developed, well nourished, obese - Eyes PERRL - ENT no hearing loss - Neck trachea midline - Respiratory normal expansion, normal respiratory effort - Cardiovascular Rhythm: regular - Abdomen Abdomen: soft, tender - Genitourinary Penis is circumcised and normal testes and epididymis are normal. The prostate is small and benign. - Rectum Rectum: normal sphincter tone - Integumentary no rash, no growths - Neurologic normal coordination, normal sensation - Musculoskeletal normal posture - Psychiatric oriented to time, oriented to person, oriented to place, speech is normal, memory intact Results - Labs 03/15/17 09:13 03/15/17 08:00 Abnormal Lab Results - Last 24 Hours (Table) 03/15/17 Range/Units 09:13 MCV 103.6 H (80.0-100.0) fL Plt Count 145 L (150-450) k/uL Assessment and Plan Plan: Impression: Postoperative urinary retention. Morbid obesity status post surgical correction for this. Medical illnesses noted in the admission history and physical. Recommendations. The patient has had difficulty urinating postoperatively most likely due to discomfort and spasm. He did not apparently have problems preoperatively. He just recently was placed on Flomax. His last residual was around 300 mL. He does feel like he has to urinate. We'll have him attempt ago and as long as his residuals remain less than 300 mL he should continue to improve without the need for a catheter. If the residuals are large remaining we may have to place a catheter for several days until the discomfort spasm settles down. He should remain on the Flomax for now.
== END 2017-03-16 15:49 | disposition home health service (06) | DRG 620 ==
LOC: 2ORWHC 07:23 → 3SUR 12:52
PROVIDERS: ADMIT Surgery Plastic and Reconstructive Surgery; ATTEND Surgery Plastic and Reconstructive Surgery
PROC: 0BUS4JZ (ICD-10-PCS; 2017-03-14)
PROC: 0BUR4JZ (ICD-10-PCS; 2017-03-14)
PROC: 0WBC4ZX Excision of Mediastinum, Percutaneous Endoscopic Approach, Diagnostic (ICD-10-PCS; 2017-03-14)
PROC: 0DJ08ZZ Inspection of Upper Intestinal Tract, Via Natural or Artificial Opening Endoscopic (ICD-10-PCS; 2017-03-14)
PROC: 0DB64Z3 Excision of Stomach, Percutaneous Endoscopic Approach, Vertical (ICD-10-PCS; principal; 2017-03-14 09:50)
DX: E66.01 Morbid (severe) obesity due to excess calories (principal); I42.9 Cardiomyopathy, unspecified; I50.9 Heart failure, unspecified; I11.0 Hypertensive heart disease with heart failure; K44.0 Diaphragmatic hernia with obstruction, without gangrene; K43.6 Other and unspecified ventral hernia with obstruction, without gangrene; R16.0 Hepatomegaly, not elsewhere classified; D17.4 Benign lipomatous neoplasm of intrathoracic organs; R33.8 Other retention of urine; N99.89 Other postprocedural complications and disorders of genitourinary system; K66.0 Peritoneal adhesions (postprocedural) (postinfection); G47.33 Obstructive sleep apnea (adult) (pediatric); N28.9 Disorder of kidney and ureter, unspecified; R11.0 Nausea; R59.0 Localized enlarged lymph nodes; N42.9 Disorder of prostate, unspecified; E78.5 Hyperlipidemia, unspecified; F31.9 Bipolar disorder, unspecified; R39.15 Urgency of urination; R32 Unspecified urinary incontinence; H91.90 Unspecified hearing loss, unspecified ear; M16.0 Bilateral primary osteoarthritis of hip; M47.816 Spondylosis without myelopathy or radiculopathy, lumbar region; K31.84 Gastroparesis; R35.1 Nocturia; G62.9 Polyneuropathy, unspecified; K21.9 Gastro-esophageal reflux disease without esophagitis; R25.1 Tremor, unspecified; I25.2 Old myocardial infarction; Z87.11 Personal history of peptic ulcer disease; Z86.010 Personal history of colon polyps; Z68.41 Body mass index [BMI] 40.0-44.9, adult; Z79.82 Long term (current) use of aspirin; Z79.899 Other long term (current) drug therapy; Z83.3 Family history of diabetes mellitus; Z82.49 Family history of ischemic heart disease and other diseases of the circulatory system; Z89.011 Acquired absence of right thumb; Z71.3 Dietary counseling and surveillance; Z83.49 Family history of other endocrine, nutritional and metabolic diseases; Z90.49 Acquired absence of other specified parts of digestive tract; Z87.891 Personal history of nicotine dependence; Z71.6 Tobacco abuse counseling; Z79.1 Long term (current) use of non-steroidal anti-inflammatories (NSAID); Z88.1 Allergy status to other antibiotic agents; Z88.0 Allergy status to penicillin; Z88.2 Allergy status to sulfonamides; Z88.8 Allergy status to other drugs, medicaments and biological substances; Z91.048 Other nonmedicinal substance allergy status; Z91.81 History of falling; Z86.39 Personal history of other endocrine, nutritional and metabolic disease; Z86.718 Personal history of other venous thrombosis and embolism; Z87.19 Personal history of other diseases of the digestive system
CPT/HCPCS: 74240; 80051; 80053; 80164; 82310; 82565; 83735; 84100; 84520; 85025; 88305; 88307; 88312; 94640; 94760

== ENCOUNTER → 2017-03-18 | Outpatient (CLI) | payer MEDICARE ==
[2017-03-18 13:34] VITALS: BP 129/73; PULSE 60; TEMP 97.9; BMI 45.3
--- NOTE | 2017-04-29 11:51 | P.PN ---
Progress Note - Text DATE OF SERVICE: 03/18/2017 CHIEF COMPLAINT: Follow-up sleeve gastrectomy. HISTORY OF PRESENT ILLNESS: Dominick Briceno is a 61-year-old gentleman who is status post repair of a large incarcerated paraesophageal hiatal hernia including sleeve gastrectomy on 03/14/2017. He is now postoperative day #4. He denies any history of dysphagia. He denies any increasing epigastric abdominal pain. He has not taken any pain medications. No reports of fevers or chills. He is taking his Depakene syrup. He is accompanied by family. He now presents for further evaluation. Otherwise, he has no new complaints. At his height of 5 feet 11 inches, his ideal body weight is 178 pounds. His highest weight was 343 pounds. Today he comes in weighing 325 pounds. He has already lost 18 pounds. Body mass index is reduced from 47.9 times to 45.3. He is still 147 pounds overweight. He has lost 11 pounds since his last evaluation 2 weeks ago. PHYSICAL EXAM: VITAL SIGNS: 97.9, 60, 14, 129/73, 5 feet 11 inches, 325 pounds. Body mass index 45.4. ABDOMEN: Incision is clean, dry, and intact without signs of cellulitis or infection. GENERAL: Well-developed male in no acute distress. HEENT: No sclerae icterus. Extraocular movements grossly intact. Moist buccal mucosa. He is edentulous. He is hard of hearing, however. NECK: Supple without supple without lymphadenopathy. No thyromegaly. CHEST: Nonlabored respirations with equal bilateral excursions. CARDIOVASCULAR: Regular rate and regular rhythm. MUSCULOSKELETAL: No clubbing, cyanosis, or edema. NEURO: Cranial nerves II through XII grossly intact. No focal or lateralizing signs. PSYCH: Appropriate affect. Alert and oriented to person, place, and time. ASSESSMENT: 1. Morbid obesity due to excess calories. 2. Body mass index reduced from 47.9 down to 45.3. 3. Status post paraesophageal diaphragmatic hernia repair. 4. Status post sleeve gastrectomy. 5. Gastroesophageal reflux disease, resolved. PLAN: 1. Recommend to continue with Depakene syrup. 2. He may transition to protein shakes. 3. Recommend followup in 2 weeks. 4. He was told not to drive while being on narcotics. 5. His blood levels of his Depakene and kidney function will be closely monitored in the interim.
== END | disposition home or self-care (01) ==
LOC: BARWHC3 09:32
PROVIDERS: ATTEND Surgery Plastic and Reconstructive Surgery
DX: Z48.815 Encounter for surgical aftercare following surgery on the digestive system (principal); E66.01 Morbid (severe) obesity due to excess calories; Z68.42 Body mass index [BMI] 45.0-49.9, adult; Z98.84 Bariatric surgery status
CPT/HCPCS: 99211

== ENCOUNTER → 2017-03-31 | Outpatient (CLI) | payer MEDICARE ==
[2017-03-31 10:01] VITALS: BP 102/67; PULSE 64; RESP 18; TEMP 98.4; BMI 42.3
[2017-03-31 14:23] LABS: ALT 26 U/L (21-72); AST 20 U/L (17-59); Alkaline Phosphatase 70 U/L (38-126); Anion Gap 11 mmol/L; Blood Urea Nitrogen 20 mg/dL (9-20); Calcium 10.3 mg/dL (8.4-10.2); Carbon Dioxide 28 mmol/L (22-30); Chloride 103 mmol/L (98-107); Glucose 86 mg/dL (74-99); Non-African American GFR(MDRD) 51 (>60 ml/min/1.73 sqM); Potassium 4.3 mmol/L (3.5-5.1); Sodium 142 mmol/L (137-145); Total Bilirubin 0.4 mg/dL (0.2-1.3); Total Protein 7.6 g/dL (6.3-8.2)
[2017-03-31 14:28] LABS: CH 32.8; HCT 43.4 % (39.0-53.0); HDW 2.59; HGB 13.8 gm/dL (13.0-17.5); MCH 32.7 pg (25.0-35.0); MCHC 31.8 g/dL (31.0-37.0); Macrocytosis Slight; Mean Platelet Volume 7.3; RBC 4.21 m/uL (4.30-5.90); RDW 14.9 % (11.5-15.5); WBC 4.8 k/uL (3.8-10.6)
--- NOTE | 2017-04-30 17:48 | P.PN ---
Progress Note - Text DATE OF SERVICE: 03/31/2017 CHIEF COMPLAINT: Follow-up sleeve gastrectomy. HISTORY OF PRESENT ILLNESS: Dominick Briceno is a 61-year-old gentleman who is status post repair of a large incarcerated paraesophageal hiatal hernia including sleeve gastrectomy on 03/14/2017. He is now 2 weeks post op. No reports of fevers or chills. He is taking his Depakene syrup. He report eating eggs and had dysphagia. He is not drinking his 75 grams of protein. At his height of 5 feet 11 inches, his ideal body weight is 178 pounds. His highest weight was 343 pounds. Today he comes in weighing 303 pounds. He has already lost 40 pounds. He has lost another 22 pounds in 2 weeks. Body mass index is reduced from 47.9 times to 42.3. He reports occassional dizziness. PHYSICAL EXAM: VITAL SIGNS: 5 feet 11 inches, 303 pounds. Body mass index 42.3 Vital Signs Temp 98.4 F 03/31/17 09:55 Pulse 64 03/31/17 09:55 Resp 18 03/31/17 09:55 BP 102/67 03/31/17 09:55 Pulse Ox ABDOMEN: Incisions are granulated. Soft, nontender, non-distended. No palpable incisional hernia. GENERAL: Well-developed male in no acute distress. HEENT: No sclerae icterus. Extraocular movements grossly intact. Moist buccal mucosa. He is edentulous. He is hard of hearing, however. NECK: Supple without supple without lymphadenopathy. No thyromegaly. CHEST: Nonlabored respirations with equal bilateral excursions. CARDIOVASCULAR: Regular rate and regular rhythm. MUSCULOSKELETAL: No clubbing, cyanosis, or edema. NEURO: Cranial nerves II through XII grossly intact. No focal or lateralizing signs. PSYCH: Appropriate affect. Alert and oriented to person, place, and time. ASSESSMENT: 1. Morbid obesity due to excess calories. 2. Body mass index reduced from 47.9 down to 42.3. 3. Status post paraesophageal diaphragmatic hernia repair. 4. Status post sleeve gastrectomy. 5. Gastroesophageal reflux disease, resolved. 6. Hypotension secondary to adverse reaction to medications. 7. Bipolar disorder. PLAN: 1. Recommend liquid diet as he is too early for soft foods such as hard boiled eggs. 2. Recommend checking levels of his Depakene. 3. Recommend decreasing dosage of his blood pressure medications such as Bumex. 4. Follow up in 1 month post-op. 5. Recommend increase intake of fluids and protein intake.
== END | disposition home or self-care (01) ==
LOC: BARWHC3 09:38
PROVIDERS: ATTEND Surgery Plastic and Reconstructive Surgery
DX: Z48.815 Encounter for surgical aftercare following surgery on the digestive system (principal); Z71.3 Dietary counseling and surveillance; E66.01 Morbid (severe) obesity due to excess calories; Z68.41 Body mass index [BMI] 40.0-44.9, adult; Z98.84 Bariatric surgery status; F31.9 Bipolar disorder, unspecified; Z79.899 Other long term (current) drug therapy
CPT/HCPCS: 80164; 80053; 85027; 97803; 36415; G0463; 99211

== ENCOUNTER → 2017-04-20 | Outpatient (CLI) | payer MEDICARE ==
[2017-04-20 14:44] VITALS: BP 127/79; PULSE 61; RESP 16; TEMP 98.4; BMI 40.4
[2017-04-20 16:14] LABS: CH 33.4; HCT 46.9 % (39.0-53.0); HDW 2.66; HGB 14.8 gm/dL (13.0-17.5); MCH 32.1 pg (25.0-35.0); MCHC 31.5 g/dL (31.0-37.0); MCV 101.7 fL (80.0-100.0); Macrocytosis Slight; RBC 4.61 m/uL (4.30-5.90); RDW 14.8 % (11.5-15.5); WBC 5.2 k/uL (3.8-10.6)
[2017-04-20 16:27] LABS: ALT 24 U/L (21-72); AST 18 U/L (17-59); Alkaline Phosphatase 54 U/L (38-126); Anion Gap 11 mmol/L; Blood Urea Nitrogen 24 mg/dL (9-20); Calcium 10.4 mg/dL (8.4-10.2); Carbon Dioxide 27 mmol/L (22-30); Chloride 102 mmol/L (98-107); Cholesterol 164 mg/dL (<200); Glucose 87 mg/dL (74-99); HDL Cholesterol 41 mg/dL (40-60); Iron 65 ug/dL (49-181); Magnesium 1.7 mg/dL (1.6-2.3); Non-African American GFR(MDRD) >60 (>60 ml/min/1.73 sqM); Phosphorous 3.1 mg/dL (2.5-4.5); Potassium 4.6 mmol/L (3.5-5.1); Sodium 140 mmol/L (137-145); Total Bilirubin 0.4 mg/dL (0.2-1.3); Total Protein 7.6 g/dL (6.3-8.2); Triglycerides 143 mg/dL (<150)
[2017-04-20 16:28] LABS: INR 1.1 (<1.1); Partial Thromboplastin Time 24.6 sec (22.0-30.0); Prothrombin Time 10.8 sec (9.0-12.0)
[2017-04-20 16:38] LABS: % Iron Saturation 22.6 % (20-50); Prealbumin 25 mg/dL (18-36); Total Iron Binding Capacity 288 ug/dL (261-462)
[2017-04-20 17:32] LABS: Vitamin B12 864 pg/mL (239-931)
[2017-04-20 18:59] LABS: Hemoglobin A1C 5.3 % (4.2-6.1)
[2017-04-27 13:26] LABS: Selenium 119 mcg/L (63-160)
--- NOTE | 2017-05-04 12:20 | P.PN ---
Progress Note - Text DATE OF SERVICE: 04/20/2017 CHIEF COMPLAINT: Follow-up sleeve gastrectomy. HISTORY OF PRESENT ILLNESS: Dominick Briceno is a 61-year-old gentleman who is status post repair of a large incarcerated paraesophageal hiatal hernia including sleeve gastrectomy on 03/14/2017. He is 1 month postop. No reports of fevers or chills. He reports that the taste of food has changed. No reports of dysphagia. At his height of 5 feet 11 inches, his ideal body weight is 178 pounds. His highest weight was 343 pounds. Today he comes in weighing 290 pounds. He has lost 13 pounds in 2.5 weeks. Total weight loss is 53 pounds. Body mass index is reduced from 47.9 times to 40.5. He has decreased his intake of Bumex and dosage of his blood pressure medication. PHYSICAL EXAM: VITAL SIGNS: 5 feet 11 inches, 290 pounds. Body mass index 40.5. Vital Signs Temp 98.4 F 04/20/17 14:34 Pulse 61 04/20/17 14:34 Resp 16 04/20/17 14:34 BP 127/79 04/20/17 14:34 Pulse Ox ABDOMEN: Soft, nontender, non-distended. No cellulitis or infection. GENERAL: Well-developed male in no acute distress. HEENT: No sclerae icterus. Extraocular movements grossly intact. Moist buccal mucosa. He is edentulous. He is hard of hearing, however. NECK: Supple without supple without lymphadenopathy. No thyromegaly. CHEST: Nonlabored respirations with equal bilateral excursions. CARDIOVASCULAR: Regular rate and regular rhythm. MUSCULOSKELETAL: No clubbing, cyanosis, or edema. NEURO: Cranial nerves II through XII grossly intact. No focal or lateralizing signs. PSYCH: Appropriate affect. Alert and oriented to person, place, and time. ASSESSMENT: 1. Morbid obesity due to excess calories. 2. Body mass index reduced from 47.9 down to 40.5. 3. Status post paraesophageal diaphragmatic hernia repair. 4. Status post sleeve gastrectomy. 5. Gastroesophageal reflux disease, resolved. 6. Hypotension secondary to adverse reaction to medications. 7. Bipolar disorder. 8. Hypothyroidism. PLAN: 1. Recommend bariatric panel. 2. Recommend levels of Depakene. 3. May start multivitamins. 4. Continue protein of 75 g daily. 5. May need adjustment of thyroid medication. Laboratory Last Values WBC 5.2 k/uL (3.8-10.6) 04/20/17 15:50 RBC 4.61 m/uL (4.30-5.90) 04/20/17 15:50 Hgb 14.8 gm/dL (13.0-17.5) 04/20/17 15:50 Hct 46.9 % (39.0-53.0) 04/20/17 15:50 MCV 101.7 fL (80.0-100.0) H 04/20/17 15:50 MCH 32.1 pg (25.0-35.0) 04/20/17 15:50 MCHC 31.5 g/dL (31.0-37.0) 04/20/17 15:50 RDW 14.8 % (11.5-15.5) 04/20/17 15:50 Plt Count 176 k/uL (150-450) 04/20/17 15:50 Macrocytosis Slight 04/20/17 15:50 PT 10.8 sec (9.0-12.0) 04/20/17 15:50 INR 1.1 (<1.1) 04/20/17 15:50 APTT 24.6 sec (22.0-30.0) 04/20/17 15:50 Sodium 140 mmol/L (137-145) 04/20/17 15:50 Potassium 4.6 mmol/L (3.5-5.1) 04/20/17 15:50 Chloride 102 mmol/L (98-107) 04/20/17 15:50 Carbon Dioxide 27 mmol/L (22-30) 04/20/17 15:50 Anion Gap 11 mmol/L 04/20/17 15:50 BUN 24 mg/dL (9-20) H 04/20/17 15:50 Creatinine 1.10 mg/dL (0.66-1.25) 04/20/17 15:50 Est GFR (MDRD) Af Amer >60 (>60 ml/min/1.73 sqM) 04/20/17 15:50 Est GFR (MDRD) Non-Af >60 (>60 ml/min/1.73 sqM) 04/20/17 15:50 Glucose 87 mg/dL (74-99) 04/20/17 15:[address] Glu mg/dL 105 mg/dL 04/20/17 15:50 Hemoglobin A1c 5.3 % (4.2-6.1) 04/20/17 15:50 Calcium 10.4 mg/dL (8.4-10.2) H 04/20/17 15:50 Phosphorus 3.1 mg/dL (2.5-4.5) 04/20/17 15:50 Magnesium 1.7 mg/dL (1.6-2.3) 04/20/17 15:50 Iron 65 ug/dL (49-181) 04/20/17 15:50 TIBC 288 ug/dL (261-462) 04/20/17 15:50 % Saturation 22.6 % (20-50) 04/20/17 15:50 Ferritin 77 ng/mL (18-464) 04/20/17 15:50 Total Bilirubin 0.4 mg/dL (0.2-1.3) 04/20/17 15:50 AST 18 U/L (17-59) 04/20/17 15:50 ALT 24 U/L (21-72) 04/20/17 15:50 Alkaline Phosphatase 54 U/L (38-126) 04/20/17 15:50 Total Protein 7.6 g/dL (6.3-8.2) 04/20/17 15:50 Albumin 4.0 g/dL (3.5-5.0) 04/20/17 15:50 Prealbumin 25 mg/dL (18-36) 04/20/17 15:50 Triglycerides 143 mg/dL (<150) 04/20/17 15:50 Cholesterol 164 mg/dL (<200) 04/20/17 15:50 LDL Cholesterol, Calc 94 mg/dL (0-99) 04/20/17 15:50 HDL Cholesterol 41 mg/dL (40-60) 04/20/17 15:50 Vitamin A 72 ug/dL (38-106) 04/20/17 15:50 Vitamin B1 88 ug/L (38-122) 04/20/17 15:50 Vitamin B12 864 pg/mL (239-931) 04/20/17 15:50 Vitamin D 25-Hydroxy 41.1 ng/mL (30.0-100.0) 04/20/17 15:50 Folate 7.83 ng/mL (>2.75) 04/20/17 15:50 TSH 0.056 mIU/L (0.465-4.680) L 04/20/17 15:50 PTH Intact 82.0 pg/mL (14.0-72.0) H 04/20/17 15:50 Valproic Acid 60.6 ug/mL 04/20/17 15:50 Copper 1163 ug/L (665-1480) 04/20/17 15:50 Selenium 119 mcg/L (63-160) 04/20/17 15:50 Zinc 68 ug/dL (60-130) 04/20/17 15:50
== END | disposition home or self-care (01) ==
LOC: BARWHC3 14:27
PROVIDERS: ATTEND Surgery Plastic and Reconstructive Surgery
DX: Z09 Encounter for follow-up examination after completed treatment for conditions other than malignant neoplasm (principal); E66.01 Morbid (severe) obesity due to excess calories; F31.9 Bipolar disorder, unspecified; I95.2 Hypotension due to drugs; E03.9 Hypothyroidism, unspecified; E21.1 Secondary hyperparathyroidism, not elsewhere classified; R56.9 Unspecified convulsions; K90.89 Other intestinal malabsorption; D50.8 Other iron deficiency anemias; K74.1 Hepatic sclerosis; N19 Unspecified kidney failure; Z68.41 Body mass index [BMI] 40.0-44.9, adult; Z98.84 Bariatric surgery status; Z98.890 Other specified postprocedural states; E44.0 Moderate protein-calorie malnutrition
CPT/HCPCS: 84255; 84134; 80164; 84425; 80061; 80053; 82607; 82728; 83036; 82525; 82746; 83540; 83550; 83735; 84100; 84443; 84590; 84630; 85027; 85610; 85730; 82306; 83970; 97803; G0463; 99211